=== PATIENT | female | born 1995 | race Hispanic/Latino ===

== ENCOUNTER 2019-03-24 22:27 | Emergency (ER) | payer OTHER ==
[2019-03-24 23:31] LABS: Absolute Lymphocytes (CBC) 2.9 K/uL (0.7-4.9); Basophils % 0.2 % (0-1.3); Eosinophils % 0.4 % (0-4.4); Hematocrit 37.5 % (36.0-45.0); Lymphocytes % 18.4 % (15.3-44.8); MPV 7.5 fL (7.6-11.3); Monocytes % 5.4 % (3.3-12.3); RBC Red Blood Cell Count 4.48 M/uL (3.86-4.86)
[2019-03-24 23:44] LABS: BUN Blood Urea Nitrogen 6 mg/dL (7-18); Bicarbonate 26 mmol/L (21-32); Glucose Level 92 mg/dL (74-106); Potassium 3.8 mmol/L (3.5-5.1); Sodium Level 138 mmol/L (136-145)
[2019-03-24 23:54] LABS: Urine Glucose NEGATIVE (NEG)
[2019-03-24 23:55] LABS: Urine Blood 1+ (NEG); Urine Protein NEGATIVE (NEG)
[2019-03-25 00:01] LABS: Urine Bacteria >50 /HPF (<20); Urine Culture Reflex Order REFLEXED
[2019-03-25] MEDS ORDERED: CEFTRIAXONE/SWI 1gm 1 GM/10 ML SYR ONE (00:46)
--- NOTE | 2019-03-25 00:51 | EDPHYS ---
Physician Documentation [facility] Name: Ansley Mathews Age: 23 yrs Sex: Female : 1995 Arrival Date: 03/24/2019 Time: 22:31 Bed 30 Private MD: ED Physician Williams Felix HPI: 03/25 00:03 This 23 yrs old Female presents to ER via Ambulatory with complaints of pm1 Nausea/Vomiting, Headache, 7 Weeks . 00:03 The patient presents to the emergency department with nausea, vomiting. Onset: The pm1 symptoms/episode began/occurred today. Possible causes: . The symptoms are aggravated by nothing. The symptoms are alleviated by nothing. Has a prescription for Phenergan from OB but is afraid to take the medication due to possible side effects. Associated signs and symptoms: Pertinent positives: nausea, vomiting, Pertinent negatives: abdominal pain, fever, vaginal discharge, vaginal bleeding. Severity of symptoms: in the emergency department the symptoms are unchanged. Patient with IUP ultrasound at OB. 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 - Social history:: Smoking status: Patient/guardian denies using tobacco. - Ebola Screening: : No symptoms or risks identified at this time. ROS: 03/25 00:03 Constitutional: Negative for fever, chills, and weight loss, Eyes: Negative for injury, pm1 pain, redness, and discharge, ENT: Negative for injury, pain, and discharge, Neck: Negative for injury, pain, and swelling, Cardiovascular: Negative for chest pain, palpitations, and edema, Respiratory: Negative for shortness of breath, cough, wheezing, and pleuritic chest pain. Back: Negative for injury and pain, : Negative for injury, bleeding, discharge, and swelling, MS/Extremity: Negative for injury and deformity, Skin: Negative for injury, rash, and discoloration, Neuro: Negative for headache, weakness, numbness, tingling, and seizure. Abdomen/GI: Positive for nausea and vomiting, Negative for abdominal pain, diarrhea, constipation, abdominal cramps. Exam: 00:03 Constitutional: This is a well developed, well nourished patient who is awake, alert, pm1 and in no acute distress. Head/Face: Normocephalic, atraumatic. Neck: Trachea midline, no thyromegaly or masses palpated, and no cervical lymphadenopathy. Supple, full range of motion without nuchal rigidity, or vertebral point tenderness. No Meningismus. Chest/axilla: Normal chest wall appearance and motion. Nontender with no deformity. No lesions are appreciated. Cardiovascular: Regular rate and rhythm with a normal S1 and S2. No gallops, murmurs, or rubs. Normal PMI, no JVD. No pulse deficits. Respiratory: Lungs have equal breath sounds bilaterally, clear to auscultation and percussion. No rales, rhonchi or wheezes noted. No increased work of breathing, no retractions or nasal flaring. Abdomen/GI: Soft, non-tender, with normal bowel sounds. No distension or tympany. No guarding or rebound. No evidence of tenderness throughout. Back: No spinal tenderness. No costovertebral tenderness. Full range of motion. Skin: Warm, dry with normal turgor. Normal color with no rashes, no lesions, and no evidence of cellulitis. MS/ Extremity: Pulses equal, no cyanosis. Neurovascular intact. Full, normal range of motion. 00:03 Neuro: Orientation: is normal, Motor: is normal, moves all fours. Vital Signs: 03/24 22:42 BP 127 / 80; Pulse 110; Resp 16; Temp 97.4; Pulse Ox 98% on R/A; Weight 72.57 kg; la1 Height 5 ft. 1 in. (154.94 cm); 03/25 00:07 BP 116 / 74; Pulse 89; Resp 16; Pulse Ox 98% on R/A; la1 03/24 22:42 Body Mass Index 30.23 (72.57 kg, 154.94 cm) la1 MDM: 03/24 22:58 Patient medically screened. pm1 03/25 00:32 ED course: Bed side ultrasound with IUP present performed by Dr. Felix. pm1 00:49 Data reviewed: vital signs. Data interpreted: Pulse oximetry: on room air is 98 %. pm1 Interpretation: normal. Counseling: I had a detailed discussion with the patient and/or guardian regarding: the historical points, exam findings, and any diagnostic results supporting the discharge/admit diagnosis, lab results, the need for outpatient follow up, to return to the emergency department if symptoms worsen or persist or if there are any questions or concerns that arise at home. 03/24 23:04 Order name: Basic Metabolic Panel; Complete Time: 00:23 pm03/24 23:04 Order name: CBC with Diff; Complete Time: 00:23 pm1 03/24 23:04 Order name: Urine Microscopic Only; Complete Time: 00:23 pm03/24 23:46 Order name: Urine Dipstick--Ancillary (enter results); Complete Time: 00:23 ar5 03/24 23:46 Order name: Urine --Ancillary (enter results); Complete Time: 00:23 ar03/25 00:03 Order name: Urine Culture [facility] 03/24 23:04 Order name: Urine Test (obtain specimen); Complete Time: 23:27 pm03/24 23:04 Order name: IV Saline Lock; Complete Time: 23:22 pm03/24 23:04 Order name: Labs collected and sent; Complete Time: 23:22 pm03/24 23:04 Order name: NPO; Complete Time: 23:17 pm03/24 23:04 Order name: Urine Dipstick-Ancillary (obtain specimen); Complete Time: 23:27 pm1 Administered Medications: 03/24 23:27 Drug: Phenergan 12.5 mg Route: IVP; Site: right antecubital; pr1 03/25 00:20 Follow up: Response: No adverse reaction [place] [employer] [facility] 03/24 23:27 Drug: NS 0.9% 1000 ml Route: IV; Rate: 1000 ml; Site: right antecubital; la1 03/25 00:20 Follow up: IV Status: Completed infusion la1 00:35 Drug: Rocephin 1 grams Route: IV; Rate: calculated rate; Site: right antecubital; la 00:48 Follow up: IV Status: Completed infusion la1 Disposition: 03/25/19 00:50 Discharged to Home. Impression: Nausea and vomiting, Urinary tract infection, site not specified. - Condition is Stable. - Discharge Instructions: Morning Sickness, and Urinary Tract Infection. - Prescriptions for Macrobid 100 mg Oral Capsule - take 1 capsule by ORAL route every 12 hours for 10 days; 20 capsule. - Medication Reconciliation Form, Thank You Letter, Antibiotic Education, Prescription Opioid Use form. - Follow up: Emergency Department; When: As needed; Reason: Worsening of condition. Follow up: Private Physician; When: 2 - 3 days; Reason: Recheck today's complaints, Continuance of care, Re-evaluation by your physician. - Problem is new. - Symptoms have improved. Signatures: Dispatcher [employer] EDOR Jaime Guzman RN RN la1 Kimani Patel [employer]IGH [employer]CHO[employer] CHEMISTRY TEACHER H[employer]CHO[employer] CHEMISTRY TEACHER pm1 Corrections: (The following items were deleted from the chart) 00:54 00:50 03/25/2019 00:50 Discharged to Home. Impression: Nausea and vomiting; Urinary la1 tract infection, site not specified. Condition is Stable. Forms are Medication Reconciliation Form, Thank You Letter, Antibiotic Education, Prescription Opioid Use. Follow up: Emergency Department; When: As needed; Reason: Worsening of condition. Follow up: Private Physician; When: 2 - 3 days; Reason: Recheck today's complaints, Continuance of care, Re-evaluation by your physician. Problem is new. Symptoms have improved. pm1
--- NOTE | 2019-03-25 00:51 | ER ---
Nurse's Notes [facility] Name: Ansley Mathews Age: 23 yrs Sex: Female : 1995 Arrival Date: 03/24/2019 Time: 22:31 Bed 30 Private MD: Diagnosis: Nausea and vomiting;Urinary tract infection, site not specified Presentation: 03/24 22:41 Presenting complaint: Patient states: I am seven weeks and have been having la1 nausea/vomiting. My OB wrote me for phenergan but I dont want to take it. Transition of care: patient was not received from another setting of care. Onset of symptoms was March 24, 2019. Risk Assessment: Do you want to hurt yourself or someone else? Patient reports no desire to harm self or others. Initial Sepsis Screen: Does the patient meet any 2 criteria? No. Patient's initial sepsis screen is negative. Does the patient have a suspected source of infection? No. Patient's initial sepsis screen is negative. Care prior to arrival: None. 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 - Social history:: Smoking status: Patient/guardian denies using tobacco. - Ebola Screening: : No symptoms or risks identified at this time. Screenin:44 Abuse screen: Denies threats or abuse. Nutritional screening: No deficits noted. la1 Tuberculosis screening: No symptoms or risk factors identified. Fall Risk None identified. Assessment: 22:43 General: Appears in no apparent distress. Behavior is calm, cooperative. Pain: Denies la1 pain. Neuro: Level of Consciousness is awake, alert, obeys commands, Oriented to person, place, time, situation. Cardiovascular: Capillary refill < 3 seconds Patient's skin is warm and dry. Respiratory: Airway is patent Respiratory effort is even, unlabored, Respiratory pattern is regular, symmetrical. GI: Abdomen is round non-distended. GI: Reports nausea, vomiting. : No signs and/or symptoms were reported regarding the genitourinary system. 03/25 00:07 Reassessment: Patient appears in no apparent distress at this time. No changes from la1 previously documented assessment. Patient and/or family updated on plan of care and expected duration. Pain level reassessed. Patient is alert, oriented x 3, equal unlabored respirations, skin warm/dry/pink. Vital Signs: 03/24 22:42 BP 127 / 80; Pulse 110; Resp 16; Temp 97.4; Pulse Ox 98% on R/A; Weight 72.57 kg; la1 Height 5 ft. 1 in. (154.94 cm); 03/25 00:07 BP 116 / 74; Pulse 89; Resp 16; Pulse Ox 98% on R/A; la1 03/24 22:42 Body Mass Index 30.23 (72.57 kg, 154.94 cm) la1 ED Course: 03/24 22:31 Patient arrived in ED. do 22:33 Kimani Patel NP is PHCP. pm1 22:33 Williams Felix MD is Attending Physician. pm1 22:41 Jaime Guzman RN is Primary Nurse. la1 22:42 Triage completed. la1 22:43 Arm band placed on left wrist. la1 22:44 Call light in reach. la1 23:22 Initial lab(s) drawn, by me, sent to lab. Inserted saline lock: 20 gauge in right lt1 antecubital area, using aseptic technique. 03/25 00:49 IV discontinued, intact, bleeding controlled, No redness/swelling at site. Pressure la1 dressing applied. Administered Medications: 03/24 23:27 Drug: Phenergan 12.5 mg Route: IVP; Site: right antecubital; la1 03/25 00:20 Follow up: Response: No adverse reaction la1 03/24 23:27 Drug: NS 0.9% 1000 ml Route: IV; Rate: 1000 ml; Site: right antecubital; la1 03/25 00:20 Follow up: IV Status: Completed infusion la1 00:35 Drug: Rocephin 1 grams Route: IV; Rate: calculated rate; Site: right antecubital; la1 00:48 Follow up: IV Status: Completed infusion la1 Outcome: 00:50 Discharge ordered by MD. pm1 00:54 Patient left the ED. la1 Signatures: Jaime Guzman RN RN la1 Amrita Cesar Patrick, JN LOG HAUL OPERATOR pm1 Alaina Coats lt1 Corrections: (The following items were deleted from the chart) 03/24 23:09 22:41 Acuity: JALEESA 4 la1 la1
== END 2019-03-25 00:54 | disposition home or self-care (01) ==
LOC: ER 22:27
DX: O23.41 Unspecified infection of urinary tract in pregnancy, first trimester (principal); Z3A.01 Less than 8 weeks gestation of pregnancy
CPT/HCPCS: 36415; 80048; 81003; 81015; 81025; 85025; 87086; 87088; 96361; 96374; 96375; 99283; J0696